=== PATIENT | male | born 1975 | race Two or more races ===

== ENCOUNTER 2016-05-18 06:03 | Day surgery (SDC) | payer BC ==
[2016-05-12 14:03] LABS: HEMATOCRIT 32.2 % (40.0-51.0); HEMOGLOBIN 11.1 g/dL (13.6-17.8)
[2016-05-16 11:39] LABS: PARTIAL THROMBO TIME 28.5 SEC (22.5-37.2); PROTIME (NOT ORD) 13.1 SEC (12.0-14.5)
--- NOTE | ~2016-05-18 | OP ---
Record Of Operation [facility] [address] [place]. [address] NAME: CRISTIN LAURA : 71 STATUS : REG [facility] [place] PAT#: [id number] AGE: 41 ADM/REG DATE : 05/18/16 MR#: [id number] REPORT SERV DATE: 05/18/16 DICTATED BY: DONTA KEN DATE: 05/18/16 REPORT STATUS : Draft TRANSCRIBED BY: MODL DATE: 05/18/16 DATE OF PROCEDURE: PREOPERATIVE DIAGNOSIS: Complex tongue laceration. POSTOPERATIVE DIAGNOSIS: Complex tongue laceration. PROCEDURE: Complex repair of tongue laceration. SURGEON: Donta Ken M.D. ANESTHESIA: General. COMPLICATIONS: None. COUNTS: All counts correct following the procedure. ESTIMATED BLOOD LOSS: Minimal. PREOPERATIVE INFORMED CONSENT: We discussed risks and benefits of surgery including, but not limited to bleeding, infection, possible persistent numbness of the tip of the tongue, possible scarring in the tongue that could be permanent, possible failure to heal, requiring revision surgery. He understands the risks and benefits of surgery and consent is on chart. PROCEDURE IN DETAIL: The patient was brought to the operating suite and placed on the operating table in supine position. General endotracheal anesthesia was initiated without incident . The neck was cleaned, prepped, and draped in the usual sterile fashion. Following this, a Lam mouth gag was placed in the oral cavity and used to open the mouth. The edges of the laceration were freshened using a 15 blade scalpel and then the complex laceration of tongue was closed using interrupted 3-0 chromic suture. The area was injected with lidocaine with 100,000 epinephrine for anesthesia and hemostasis. The patient was awakened from anesthesia and taken to recovery room in stable condition. RIOS/KAYLEE Donta Ken M.D. / [id number] CC: Naima Velez M.D.
[~2016-05-18 06:03] MED LIST: CALTRA600D PO; CYMBALTA60 PO; FERROUS SULFATE; INSTRINSI PO; KDUR10 PO; LEVSINTAB; MAGNESIUM; MULTIVITAMIN; PRILO PO; PROMEGA PO; SUCR PO; TRAZ50 PO; VIT A; VIT D; VITAMIN B COMPLEX; VITAMIN B PO; ZESTRIL30 MG PO; ZOFRAN4
== END 2016-05-18 23:59 | disposition home or self-care (01) ==
LOC: MSC 06:03
PROVIDERS: Otolaryngology
PROC: 0WQ20ZZ Repair Face, Open Approach (ICD-10-PCS; principal; 2016-05-18 06:45)
DX: S01.512A Laceration without foreign body of oral cavity, initial encounter (principal); K21.9 Gastro-esophageal reflux disease without esophagitis; Z98.84 Bariatric surgery status; Z90.49 Acquired absence of other specified parts of digestive tract; Z87.891 Personal history of nicotine dependence; G62.9 Polyneuropathy, unspecified; D64.9 Anemia, unspecified; K74.60 Unspecified cirrhosis of liver
CPT/HCPCS: 85014; 85018; 85610; 85730; A9270-GY; J0690; J2250; J2405; J2710; J3010